=== PATIENT | female | born 1970 | race Caucasian/White ===

== ENCOUNTER 2017-12-02 19:11 | Emergency (ER) | payer OTHER ==
[~2017-12-02] VITALS: Ht 154.9 cm; Wt 50.5 kg
[~2017-12-02 19:11] MED LIST: APAP PO; BUTALB PO; CARAFATE 1GM1 G PO; CETIRIZINE; COMPAZINE 5MG TA5 MG PO; CYCLOBENZAPRINE10 MG PO; DECONAMINE SR 81 CER PO; FERROUS SULFATE27 MG PO; FLONASE NASAL S16 GM NS; LEVAQUIN 5500 MG/TAB PO; LORTAB 5/500 501 TAB PO; MOTRIN 200200 MG/TAB PO; NAPROXEN EC500 MG PO; NEXIUM40 MG PO; PERCOCET 325 MG1 TA2 PO; PERCOCET 5/321 UDTAB PO; SINGULAIR; SINGULAIR 110 MG/TAB PO; SUDAFED30 MG PO; ULTRAM 50MG TAB50 MG PO; ZOFRAN 4MG T4 MG/TAB PO; ZYRTEC 10MG10 MG PO; ZYRTEC5 MG PO
[2017-12-02 19:13] VITALS: TEMP 97.1
[2017-12-02 19:53] LABS: BASO % 0.3 % (0.0-2.0); EOS % 0.2 % (0-4.0); GRAN # 7.6 (1.4-6.5); GRAN % 82.7 % (42.2-75.2); HEMATOCRIT 42.5 % (37.0-47.0); HEMOGLOBIN 14.9 g/dl (12.5-16.0); LYMPH # 1.2 (1.2-3.4); LYMPH % 12.5 % (20.0-51.0); MEAN CELL VOLUME 87 fl (80.0-100.0); MEAN CORPUSCULAR HEMOGLOBIN 31 pg (27.0-31.0); MEAN CORPUSCULAR HGB CONC 35 g/dl (33.0-37.0); MEAN PLATELET VOLUME 10.4 fl (7.4-10.4); MONO # 0.4 (0.1-0.6); MONO % 4.1 % (1.7-9.3); PLATELET COUNT 238 K/mm3 (130-400); RED BLOOD COUNT 4.89 M/mm3 (4.10-5.30)
[2017-12-02 20:04] LABS: ALANINE AMINOTRANSFERASE 52 U/L (9-52); ALBUMIN 5.2 gm/dL (3.5-5.0); ALKALINE PHOSPHATASE 88 U/L (50-136); ANION GAP 12 mmol/L (7-16); AST,SGOT 48 U/L (15-37); BILIRUBIN,TOTAL 0.7 mg/dL (0.0-1.0); BLOOD UREA NITROGEN 10 mg/dL (7-17); CALCIUM 10.4 mg/dL (8.4-10.2); CARBON DIOXIDE 23 mmol/L (22-30); CHLORIDE 99 mmol/L (98-107); CREATININE, serum 0.54 mg/dL (0.52-1.25); GLUCOSE 155 mg/dL (74-106); POTASSIUM 3.7 mmol/L (3.4-5.0); SODIUM 134 mmol/L (137-145); TOTAL PROTEIN 8.4 gm/dL (6.4-8.2)
[2017-12-02 20:08] LABS: ACETAMINOPHEN < 10 ug/mL (10-30); ALCOHOL(ethanol),MEDICAL < 10 mg/dL; SALICYLATE < 1.0 mg/dL
[2017-12-02 20:14] LABS: TROPONIN-I < 0.012 ng/mL (0.000-0.034)
[2017-12-02] MEDS ORDERED: SINGULAIR 110 MG/TAB PO (21:00)
[2017-12-02] MEDS ORDERED: MASON NATURAL2000 IU PO (21:02)
[2017-12-02] MEDS ORDERED: AMBIEN 5MG TABLE5 MG PO (21:02)
[2017-12-02] MEDS ORDERED: ATIVAN 0.50.5 MG/TAB PO (21:56)
[2017-12-02 22:25] VITALS: BP 119/81; PULSE 79
== END 2017-12-02 22:33 | disposition home or self-care (01) ==
LOC: COL.ER 19:11
PROVIDERS: Emergency Medicine
DX: F41.9 Anxiety disorder, unspecified (principal); R41.82 Altered mental status, unspecified; R51 Headache
CPT/HCPCS: J1885; J2060; J7030

== ENCOUNTER → 2018-06-10 | Outpatient (CLI) | payer OTHER ==
[~2018-06-10] MED LIST changes: +AMBIEN 5MG TABLE5 MG PO; +ATIVAN 0.50.5 MG/TAB PO; +MASON NATURAL2000 IU PO
== END ==
LOC: MC.RAD 14:10
DX: Z12.31 Encounter for screening mammogram for malignant neoplasm of breast (principal)

== ENCOUNTER 2019-08-15 11:46 | Emergency (ER) | payer OTHER ==
[~2019-08-15] VITALS: Ht 157.5 cm; Wt 61.4 kg
[2019-08-15 11:51] VITALS: BP 130/78; TEMP 98.3
[2019-08-15] MEDS ORDERED: HCTZ12.5TAB PO (12:04)
[2019-08-15] MEDS ORDERED: MULTI VITAMINS1 TAB PO (12:04)
[2019-08-15] MEDS ORDERED: ATIVAN 0.50.5 MG/TAB PO (12:05)
[2019-08-15 13:05] VITALS: PULSE 74
== END 2019-08-15 13:05 | disposition home or self-care (01) ==
LOC: COL.ER 11:46
DX: S43.401A Unspecified sprain of right shoulder joint, initial encounter (principal); G43.909 Migraine, unspecified, not intractable, without status migrainosus; Y92.39 Other specified sports and athletic area as the place of occurrence of the external cause

== ENCOUNTER → 2020-07-11 | Outpatient (CLI) | payer OTHER ==
[~2020-07-11] MED LIST changes: +HCTZ12.5TAB PO; +MULTI VITAMINS1 TAB PO
== END ==
LOC: MC.RAD 13:00
DX: Z12.31 Encounter for screening mammogram for malignant neoplasm of breast (principal)

== ENCOUNTER → 2021-07-13 | Outpatient (CLI) | payer OTHER | LOC: MC.RAD 12:47 | DX: Z12.31 Encounter for screening mammogram for malignant neoplasm of breast (principal) ==

== ENCOUNTER → 2022-07-15 | Outpatient (CLI) | payer OTHER | LOC: MC.RAD 13:11 | DX: Z12.31 Encounter for screening mammogram for malignant neoplasm of breast (principal) ==

== ENCOUNTER → 2023-07-30 | Outpatient (CLI) | payer OTHER | LOC: CANSCHCLI → MC.RAD 11:21 → COL.RAD 11:21 → MC.RAD 11:30 → COL.RAD 11:30 | DX: Z12.31 Encounter for screening mammogram for malignant neoplasm of breast (principal) ==

== ENCOUNTER → 2024-08-03 | Outpatient (CLI) | payer OTHER | LOC: MC.RAD 11:21 | DX: Z12.31 Encounter for screening mammogram for malignant neoplasm of breast (principal) ==